=== PATIENT | female | born 2000 | race Hispanic/Latino ===

== ENCOUNTER 2022-04-02 16:15 | Day surgery (SDC) | payer OTHER ==
[2022-04-02 16:47] VITALS: BMI 34.9
[2022-04-02] MEDS ORDERED: hydrALAZINE 20 MG/ML VIAL SLOW IVP PRN (17:45)
== END 2022-04-02 17:50 | disposition home or self-care (01) ==
LOC: CSHLD/OP 16:15
PROVIDERS: ATTEND Obstetrics & Gynecology
DX: O36.8120 Decreased fetal movements, second trimester, not applicable or unspecified (principal); Z3A.25 25 weeks gestation of pregnancy

== ENCOUNTER 2022-07-06 15:52 | Day surgery (SDC) | payer OTHER ==
[2022-07-06] MEDS ORDERED: hydrALAZINE 20 MG/ML VIAL SLOW IVP PRN (16:20)
[2022-07-06 16:22] VITALS: BMI 37.4
[2022-07-06 18:01] LABS: Fetal Membranes Rupture No Membranes Rupture (No Rupture)
== END 2022-07-06 18:18 | disposition home or self-care (01) ==
LOC: CSHLD/OP 15:52
PROVIDERS: ATTEND Family Medicine
DX: O36.8130 Decreased fetal movements, third trimester, not applicable or unspecified (principal); O21.2 Late vomiting of pregnancy; O99.013 Anemia complicating pregnancy, third trimester; D64.9 Anemia, unspecified; Z3A.38 38 weeks gestation of pregnancy; Z86.11 Personal history of tuberculosis; Z86.19 Personal history of other infectious and parasitic diseases; Z79.82 Long term (current) use of aspirin
CPT/HCPCS: 76819; 84112; 87480; 87510; 87660; 99284